=== PATIENT | female | born 1990 ===

== ENCOUNTER 2024-01-16 11:56 | Outpatient (REF) | payer MEDICAID, SELFPAY ==
[2024-01-16 17:09] LABS: Anion Gap 9.5 mmol/L (3-11); BUN 8 mg/dL (7-18); CO2 29.5 mmol/L (21.0-32.0); CREATININE 0.7 mg/dL (0.55-1.02); Calcium 9.2 mg/dL (8.5-10.1); Chloride 105 mmol/L (98-107); Estimated GFR 118.51 (mL/min/1.73m2); Glucose 83 mg/dL (74-106); Potassium 4.3 mmol/L (3.5-5.1); Sodium 144 mmol/L (136-145)
== END 2024-01-16 11:57 | disposition home or self-care (01) ==
LOC: NCHCN 11:56
PROVIDERS: PCP Student in an Organized Health Care Education/Training Program; Visit Provider Student in an Organized Health Care Education/Training Program
DX: I10 Essential (primary) hypertension (principal)
CPT/HCPCS: 80048

== ENCOUNTER 2024-10-20 17:46 | Outpatient (REF) | payer MEDICAID, SELFPAY ==
[2024-10-20 16:05] LABS: Abs Immature Grans 0.01 10^3/uL (0.0-0.06); HCT 41.6 % (36.0-46.0); HGB 13.5 g/dL (11.2-15.7); Immature Grans % 0.2 %; MCH 29.7 pg (27.0-33.0); MCHC 32.5 % (32.0-36.0); MCV 92 fL (80-95); MPV 9.9 fL (8.0-11.0); Platelet Count 224 10^3/uL (130-400); RBC 4.54 10^6/uL (3.93-5.22); RDW 12.2 % (11.7-14.6); RDW-SD 41.6 fL; WBC 5.16 10^3/uL (4.4-10.8)
[2024-10-20 16:23] LABS: ALT 18 U/L (14-59); AST 19 U/L (15-37); Albumin 4.0 g/dL (3.4-5.0); Alkaline Phosphatase 71 U/L (46-116); Anion Gap 5.3 mmol/L (3-11); BUN 12 mg/dL (7-18); Bilirubin, Total 0.4 mg/dL (0.2-1.0); CO2 30.7 mmol/L (21.0-32.0); Calcium 8.9 mg/dL (8.5-10.1); Calculated LDL 89 mg/dL (<100); Chloride 104 mmol/L (98-107); Cholesterol 184 mg/dL (<200); Estimated GFR 122.23 (mL/min/1.73m2); Glucose 103 mg/dL (74-106); HDL Cholesterol 84 mg/dL (>or=50); Potassium 4.4 mmol/L (3.5-5.1); Sodium 140 mmol/L (136-145); TSH (W/Ref FT4) 3.44 uIU/mL (0.36-3.74); Total Protein 6.9 g/dL (6.4-8.2); Triglyceride 57 mg/dL (<150)
== END 2024-10-20 17:47 | disposition home or self-care (01) ==
LOC: NCHCN 17:46
PROVIDERS: PCP Student in an Organized Health Care Education/Training Program; Visit Provider Student in an Organized Health Care Education/Training Program
DX: Z13.220 Encounter for screening for lipoid disorders (principal); I10 Essential (primary) hypertension
CPT/HCPCS: 80053; 80061; 84443; 85025